=== PATIENT | male | born 1940 | race Caucasian/White ===

== ENCOUNTER 2016-10-16 18:26 | Emergency (ER) | payer MEDICARE ==
[~2016-10-16] VITALS: Ht 172.7 cm; Wt 68.0 kg
[~2016-10-16 18:26] MED LIST: ALPR-323 PO; LEVO100T9 PO; RAMI10CA PO
[2016-10-16 18:31] VITALS: BP 144/75
--- NOTE | 2016-10-16 19:21 | NUR ---
RECEIVED REPORT FROM BOLA HOLLINS. PT NOT IN ER BED 12. INFORMED DR. AMADO.
--- NOTE | 2016-10-16 19:22 | NUR ---
Patient eloped from facility. ER MD notified. per RN Eddie pt stated "i feel better" then left.
== END 2016-10-16 19:27 | disposition left against medical advice (07) ==
LOC: ER 18:32
DX: R09.89 Other specified symptoms and signs involving the circulatory and respiratory systems (principal); I10 Essential (primary) hypertension
CPT/HCPCS: A4606; Z7502; Z7610

== ENCOUNTER 2020-07-06 16:09 | Emergency (ER) | payer MEDICARE ==
[~2020-07-06] VITALS: Ht 167.6 cm; Wt 71.2 kg
[~2020-07-06 16:09] MED LIST changes: -RAMI10CA PO; +RAMI10CA69 PO
[2020-07-06] MEDS ORDERED: ACETAMINOPHEN ES 500 MG TABLET PO ONE (16:30)
[2020-07-06] MEDS ORDERED: TDAP [DIPH/PERTUSSIS/TET] 0.5 ML VIAL IM ONE (16:30)
--- NOTE | 2020-07-06 17:35 | NUR ---
Patient awake alert non distres noted able to walk to Bathroom, patient Ct done pending result .
--- NOTE | 2020-07-06 18:16 | NUR ---
Patient declined tetanus vaccine explain importance per patient i might up to date " he will agrees to follow up to his PMD .
--- NOTE | 2020-07-06 18:35 | NUR ---
Per Brett got call from Angelika ( son who arranged the [employer] ) patient awake alert no ndistress noted able to walk slow assisted to and to service [employer] name lisa ,patient agrees to follow up PMd in AM and follow up .
--- NOTE | 2020-07-06 18:40 | NUR ---
all belonging given to patient .
[2020-07-06 18:43] VITALS: BP 134/56
== END 2020-07-06 18:44 | disposition home or self-care (01) ==
LOC: ER 16:14
DX: S01.21XA Laceration without foreign body of nose, initial encounter (principal); S01.81XA Laceration without foreign body of other part of head, initial encounter; S40.022A Contusion of left upper arm, initial encounter; S40.021A Contusion of right upper arm, initial encounter; I10 Essential (primary) hypertension; E03.9 Hypothyroidism, unspecified; Z79.899 Other long term (current) drug therapy; W01.198A Fall on same level from slipping, tripping and stumbling with subsequent striking against other object, initial encounter; Y93.89 Activity, other specified; Y92.89 Other specified places as the place of occurrence of the external cause; Y99.8 Other external cause status
CPT/HCPCS: 70450; 73030 ×2; 73060 ×2; 73080 ×2; 99284; A6403

== ENCOUNTER 2023-03-18 10:00 | Emergency (ER) | payer MEDICARE ==
[~2023-03-18] VITALS: Ht 167.6 cm; Wt 74.8 kg
[2023-03-18 10:09] VITALS: TEMP 98.1
[2023-03-18 13:47] VITALS: BP 160/77; O2SAT 96
== END 2023-03-18 13:48 ==
LOC: ER 10:23
DX: Z00.00 Encounter for general adult medical examination without abnormal findings (principal); F03.90 Unspecified dementia, unspecified severity, without behavioral disturbance, psychotic disturbance, mood disturbance, and anxiety; I10 Essential (primary) hypertension; E03.9 Hypothyroidism, unspecified; W01.0XXA Fall on same level from slipping, tripping and stumbling without subsequent striking against object, initial encounter; Y93.89 Activity, other specified; Y92.89 Other specified places as the place of occurrence of the external cause; Y99.8 Other external cause status
CPT/HCPCS: 70450-TC

== ENCOUNTER 2023-03-29 08:53 | Emergency (ER) | payer MEDICARE ==
[~2023-03-29] VITALS: Ht 172.7 cm; Wt 122.9 kg
[2023-03-29 13:37] VITALS: BP 129/71; TEMP 98; O2SAT 97
== END 2023-03-29 13:10 ==
LOC: ER 08:55
DX: R55 Syncope and collapse (principal); F03.90 Unspecified dementia, unspecified severity, without behavioral disturbance, psychotic disturbance, mood disturbance, and anxiety; I10 Essential (primary) hypertension; E03.9 Hypothyroidism, unspecified; Z79.899 Other long term (current) drug therapy; W18.39XA Other fall on same level, initial encounter; Y93.89 Activity, other specified; Y92.89 Other specified places as the place of occurrence of the external cause; Y99.8 Other external cause status
CPT/HCPCS: 70450-TC; 72125-TC

== ENCOUNTER 2025-03-14 09:32 | Emergency (ER) | payer MEDICARE ==
[~2025-03-14] VITALS: Ht 182.9 cm; Wt 90.7 kg
[2025-03-14 14:16] VITALS: BP 119/75; TEMP 96.7; O2SAT 94
== END 2025-03-14 14:16 ==
LOC: ER 09:34
DX: S00.83XA Contusion of other part of head, initial encounter (principal); S00.91XA Abrasion of unspecified part of head, initial encounter; F03.90 Unspecified dementia, unspecified severity, without behavioral disturbance, psychotic disturbance, mood disturbance, and anxiety; E03.9 Hypothyroidism, unspecified; I11.9 Hypertensive heart disease without heart failure; Z79.890 Hormone replacement therapy; W18.30XA Fall on same level, unspecified, initial encounter; Y93.89 Activity, other specified; Y92.89 Other specified places as the place of occurrence of the external cause; Y99.9 Unspecified external cause status
CPT/HCPCS: 70450-TC; 72125-TC